=== PATIENT | female | born 1995 | race Caucasian/White ===

== ENCOUNTER 2023-12-28 10:30 | Day surgery (SDC) | payer OTHER ==
[2023-12-27 10:58] LABS: Urine Specific Gravity/Preg 1.025 (1.005-1.030)
--- NOTE | 2023-12-27 16:55 | EKG ---
Test Date: 2023-12-27 Test Time: 10:47:51 Trace Clerk: MIMI MEASUREMENT RESULTS: Intervals: Rate: 88 GA: 136 QRSD: 80 QT: 374 QTc: 452 [place]: P: 46 GA: 136 QRS: 24 T: 29 INTERPRETIVE STATEMENTS: Normal sinus rhythm Normal ECG No previous ECG available for comparison Electronically Signed On 12-27-23 16:54:28 CDT by Murphy Jeff
[2023-12-28] MEDS ORDERED: CEFOXITIN SODIUM 1 GM/VIAL ONE (10:48)
[2023-12-28] MEDS ORDERED: Ringers Lactate 1,000 ML IV ONE ×2 (10:48→14:44)
--- NOTE | 2023-12-28 12:58 | P.HP ---
Date of Service: 12/28/23 PC: This 28-year-old female presents for a laparoscopic cholecystectomy with intraoperative cholangiogram. HPC: This patient, has been experiencing right upper quadrant abdominal pain radiating into her back for the last few months. Has had ER visits and has documented gallstones. She says she has been having severe attacks, is co nstantly nauseous, interferes with her lifestyle. PSHx: Negative PMHx: Negative Social Hx: Allergic to lamotrigine and loratadine Sys R: No cough, wheeze, shortness of breath no chest pain or palpitations denies any urinary complaints O/E: Awake alert today comfortable HEENT: Not jaundiced Chest: Air entry equal bilaterally Abd: Has mild right upper quadrant tenderness but no true guarding or Starr sign [place]: Intact Data: Has documented stones on CT Impression: Acute on chronic chronic cholecystitis with cholelithiasis Plan: I will taken the operating room for laparoscopic possible open cholecystectomy with a cholangiogram. The risks of this procedure have been discussed. The possibility of bleeding, infection, injury to bowel blood vessels and intestines has been described. The possible need for an open and or further surgeries and procedures was described. She understands and wants to proceed.
[2023-12-28] MEDS ORDERED: FENTANYL CITR 100 MCG/2 ML ONE ×2 (13:01→13:27)
[2023-12-28] MEDS ORDERED: MIDAZOLAM HCL 2 MG/2 ML INJ ONE (13:01)
[2023-12-28] MEDS ORDERED: LIDOCAINE 2% MPF 5 ML VIAL ONE (13:01)
[2023-12-28] MEDS ORDERED: propofoL 200 MG/20 ML VIAL IV ONE (13:01)
[2023-12-28] MEDS ORDERED: ROCURONIUM 50 MG/5 ML VIAL IV ONE ×2 (13:02→13:54)
[2023-12-28] MEDS ORDERED: dexAMETHasone 4 MG/ML VIAL ONE (13:47)
[2023-12-28] MEDS ORDERED: DEXMEDETOMIDINE HCL 200 MCG/2 ML VIAL ONE (14:21)
[2023-12-28] MEDS ORDERED: MORPHINE 10 MG/ML VIAL ONE (14:24)
--- NOTE | 2023-12-28 14:37 | P.OP ---
Preoperative diagnosis: Acute on chronic cholecystitis with cholelithiasis Postoperative diagnosis: The same Primary procedure: Laparoscopic cholecystectomy Secondary procedure: Cholangiogram Anesthesia: General Estimated blood loss: Less than 10 cc Operative Technique: Patient brought the operating room placed supine on the table. After the induction of adequate general endotracheal anesthesia, the area of the abdomen was prepped with a DuraPrep solution, she was draped in the usual aseptic manner. A subumbilical incision was made. This is brought down through the skin and subcutaneous tissue. The Visiport was used to create a pneumoperitoneum to approximately 12 mmHg. Under direct vision a 5 mm trocar was placed in the upper midline, and 2 other fives on the right lateral side. The patient was now placed in reverse patella Trendelenburg. The table was air planed to the left. We could see in the right upper quadrant a distended gallbladder that showed mild inflammation. A grasper was placed on the fundus. Another down by Villa's pouch. It was interesting that we could actually feel the stones as we put bit down on the grasper moving all the way so we could grasp the actual tissue itself. Applying lateral traction we were able to dissect out and expose the cystic duct and artery. At this point attention was turned towards the cystic duct. We were able to milk the stones back out of the cystic duct into the gallbladder itself. A clip was now placed between the gallbladder and the cystic duct. An opening was made into the cystic duct where we were able to place intraoperative cholangiogram Miguel Ángel catheter. The contrast was injected. We could see good flow of contrast into the duodenum. There is 1 air bubble that shows on the film as well as the balloon itself. However we had good flow distally and proximally as seen on our films. The catheter was now removed. Clips were placed on the distal portion of the cystic duct. The cystic artery was identified and clipped and divided in the usual way. The gallbladder was now dissected free from the liver bed, placed into an Endo Catch, and brought out through the umbilical trocar site. An absorbable suture was now used to approximate the umbilical defect. Using the Endo Close suture was placed. The patient was then returned to the neutral position on the OR table. The pneumo peritoneum was evacuated, the trocars removed, and the suture tied. Ringle were then applied to the skin. At the end of the procedure the patient was in a stable condition when sent to the recovery room. Needle sponge instrument count were correct. No drains were placed. Complications: None Transferred to: Recovery Room Condition: Good
[2023-12-28] MEDS ORDERED: ONDANSETRON 4 MG/2 ML VIAL IV PRN (14:51)
[2023-12-28] MEDS: HYDROMORPHONE HCL 1 MG/ML INJ ONE ×2 (14:57→15:10)
[2023-12-28] MEDS: Ringers Lactate 1,000 ML IV SCH (15:00)
--- NOTE | 2023-12-28 15:56 | RAD REPORT ---
EXAM: Fluoroscopy use, Cholangiogram Oper-Xray Or HISTORY: [facility] MAIN LAP CHANELLE WITH IOC COMPARISON: None FINDINGS: A total of 2 images were sent to PACS, during a fluoroscopically guided intraoperative chol angiography. No radiologist was involved in protocoling or performance of the study, and no radiologist was present for the duration of the procedure. No interpretation of the saved images will be provided. Total fluoroscopy time: 0.2 minutes. IMPRESSION: Documentation of fluoroscopy use as above.
[2023-12-28 17:49] VITALS: BMI 44.4
[2023-12-28] MEDS: MORPHINE 4 MG/ML SYR IV PRN (18:49)
[2023-12-28] MEDS: HYDROCODONE/APAP 7.5/325 MG TAB PO PRN (22:03)
[2023-12-29 00:09] VITALS: O2SAT 93
[2023-12-29 09:27] VITALS: BP 125/69; TEMP 98.2
--- NOTE | 2023-12-29 12:14 | P.DS ---
Discharge Date: 12/29/23 Disposition: ROUTINE DISCHARGE Discharge Condition: GOOD Reason for Admission: acute postoperative abdominal pain Procedures: Laparoscopic cholecystectomy with cholangiogram Brief History of Present Illness: This patient, has been having right upper quadrant abdominal pain was noted to have gallstones. She presented for an elective procedure. Hospital Course: The patient underwent an elective procedure and tolerated it reasonably well. She was admitted postoperatively for observation and pain control. Today she is up ambulating, has a 3000 effort on her incentive spirometer has been ambulating and voiding well. She is deemed fit for discharge. Her pain is controlled on oral medications. Vital Signs/Physical Exam: Temp Pulse Resp BP Pulse Ox 98.2 F 60 17 125/69 96 12/29/23 08:00 12/29/23 08:00 12/29/23 09:11 12/29/23 08:00 12/29/23 09:11 Home Medications: Brexpiprazole [Rexulti] 1 tab PO DAILY 12/27/23 Dextroamphetamine/Amphetamine [Adderall Xr 30 mg Capsule] 1 cap PO DAILY 12/27/23 Pantoprazole Sodium 1 tab PO BID 12/27/23 buPROPion HCL [Wellbutrin Xl] 1 tab PO DAILY 12/27/23 Physician Discharge Instructions: DC IV, DC home. Diet as tolerated. Pain medicine as needed. Milk of magnesia as needed. You may shower, change dressings as needed or leave open to the air. Any questions or problems, text me or call. See me next Tuesday at 10 AM in my office. Diet: Regular Activity: Ad dominique Followup: Brigido Alegre MD [Primary Care Provider] -
== END 2023-12-29 13:28 | disposition home or self-care (01) ==
LOC: OR 10:30 → 2ND 16:21 → OR 12-29 13:28
PROVIDERS: ATTEND Surgery
PROC: 0FT44ZZ Resection of Gallbladder, Percutaneous Endoscopic Approach (ICD-10-PCS; principal; 2023-12-28 12:00)
DX: K80.10 Calculus of gallbladder with chronic cholecystitis without obstruction (principal)
CPT/HCPCS: 74300; 81025; 88304; 93005; 94010; J0694; J1100; J1170; J2001; J2250; J2704; J3010; J7120